=== PATIENT | male | born 1985 | race African-American/Black ===

== ENCOUNTER 2017-12-25 14:53 | Emergency (ER) | payer SELFPAY ==
--- NOTE | 2017-12-25 15:00 | PDOC ---
Rapid Medical Evaluation Time Seen by Provider: 12/25/17 15:00 Medical Evaluation: Allergies Allergy/AdvReac Type Severity Reaction Status Date / Time No Known Allergies Allergy Verified 06/21/15 17:09 12/25/17 15:00 The patient presents with a chief complaint of: sore throat, cough I have performed a brief in-person evaluation of this patient. Pertinent physical exam findings: vss, normal speech I have ordered the following: rapid strep The patient will proceed to the ED for further evaluation. 12/25/17 15:08
[2017-12-25 15:10] VITALS: BP 156/109; PULSE 86; TEMP 98.3; BMI 32.8
[2017-12-25] MEDS ORDERED: DEXAMETHASONE LIQUID 0.5 MG/5 ML 240 ML BULK BOTTLE PO ONE (15:33)
[2017-12-25] MEDS ORDERED: KETOROLAC TROMETHAMINE 30 MG/1 ML VIAL IM ONE (15:33)
[2017-12-25] MEDS ORDERED: KETOROLAC TROMETHAMINE 30 MG/1 ML VIAL ONE (15:34)
[2017-12-25] MEDS ORDERED: DEXAMETHASONE SOD PHOSPHATE 10 MG/1 ML VIAL ONE (15:34)
--- NOTE | 2017-12-25 15:46 | PDOC ---
History of Present Illness - General Chief Complaint: Cold Symptoms Stated Complaint: THROAT PAIN Time Seen by Provider: 12/25/17 15:00 History Source: Patient Exam Limitations: No Limitations - History of Present Illness Initial Comments: 12/25/17 15:51 This is a 32-year-old male without significant past medical history who presents to the emergency department with 3 weeks of sore throat, moist cough, nasal congestion and intermittent fevers. He states he experienced episodes like this before for which she was should with antibiotics and had a sleep study performed. Patient states that the starting antibiotic/time the symptoms resolved in 10 days. He denies chest pain, shortness of breath, abdominal pain, nausea, vomiting, blurry vision, difficulty swallowing. Past History - Past Medical History Allergies/Adverse Reactions: Allergies Allergy/AdvReac Type Severity Reaction Status Date / Time No Known Allergies Allergy Verified 06/21/15 17:09 Home Medications: Ambulatory Orders NK [No Known Home Medication] 12/25/17 HTN: Yes (NO MEDS) - Suicide/Smoking/Psychosocial Hx Smoking History: Never smoked Number of Cigarettes Smoked Daily: 1 Cigars Per Day: 1 'Breaking Loose' booklet given: 06/21/15 Hx Alcohol Use: Yes (SOCIAL) Drug/Substance Use Hx: No Substance Use Type: None Review of Systems - Review of Systems Able to Perform ROS?: Yes Is the patient limited Croatian proficient: No Constitutional: Yes: See HPI HEENTM: Yes: See HPI Respiratory: Yes: See HPI Cardiac (ROS): No: Symptoms Reported ABD/GI: No: Symptoms Reported : No: Symptoms Reported Musculoskeletal: No: Symptoms Reported Integumentary: No: Symptoms Reported Neurological: No: Symptoms reported Endocrine: No: Symptoms Reported *Physical Exam - Vital Signs Last Vital Signs Temp Pulse Resp BP Pulse Ox 98.3 F 86 18 156/109 99 12/25/17 15:08 12/25/17 15:08 12/25/17 15:08 12/25/17 15:08 12/25/17 15:08 - Physical Exam General Appearance: Yes: Appropriately Dressed. No: Apparent Distress HEENT: positive: TMs Normal, Pharyngeal Erythema, Tonsillar Erythema, Nasal Congestion, Hearing Grossly Normal. negative: Tonsillar Exudate, Rhinorrhea, Sinus Tenderness Neck: positive: Trachea midline, Supple Respiratory/Chest: positive: Lungs Clear, Normal Breath Sounds. negative: Respiratory Distress, Accessory Muscle Use Cardiovascular: positive: Regular Rhythm, Regular Rate, S1, S2. negative: Edema , Murmur Gastrointestinal/Abdominal: positive: Normal Bowel Sounds, Soft. negative: Tender Musculoskeletal: positive: Normal Inspection. negative: CVA Tenderness Extremity: positive: Normal Capillary Refill, Normal Inspection Integumentary: positive: Normal Color, Dry, Warm Neurologic: positive: Alert, Normal Response, Motor Strength 5/5 Medical Decision Making - Medical Decision Making 12/25/17 15:52 A/P: 32-year-old male without significant past medical history with 3 weeks of upper respiratory symptoms TMs within normal limits bilaterally No tenderness over sinuses Differential erythema and tonsillar erythema present. No tonsillar exudate noted. +3 tonsils present Note tender cervical lymphadenopathy present Lungs clear to auscultation bilaterally Regular rhythm tachycardic with rate of 110. No murmurs noted Abdomen soft nontender nondistended Symptoms consistent with upper respiratory illness. Influenza testing deferred as symptoms have been present for 3 weeks. Rapid strep testing Toradol 30 mg IM now Decadron 10 mg by mouth now Reassess 12/25/17 16:00 Rapid strep test and negative. I will discharge patient home with symptomatic treatment for upper respiratory infection *DC/Admit/Observation/Transfer Diagnosis at time of Disposition: Upper respiratory infection Qualifiers: URI type: unspecified viral URI Qualified Code(s): J06.9 - Acute upper respiratory infection, unspecified - Discharge Dispostion Disposition: HOME Condition at time of disposition: Stable Admit: No - Referrals - Patient Instructions Printed Discharge Instructions: DI for Viral Upper Respiratory Infection -- Adult Additional Instructions: Rest, drink lots of fluids: Teas, water, soups, Pedialyte Saltwater gargles Steamy showers/seem to face break up mucus Avoid contact with others until fevers and cough resolved Lots of handwashing and good hygiene Continue [id number] medications for symptomatic relief Tylenol or Motrin for fever and pain Followup with private physician in one to 2 days as needed Return to emergency department for worsened symptoms, fevers, dehydration - Post Discharge Activity
== END 2017-12-25 16:11 | disposition home or self-care (01) ==
LOC: JERFT 14:53
PROC: 3E0333Z Introduction of Anti-inflammatory into Peripheral Vein, Percutaneous Approach (ICD-10-PCS; principal; 2017-12-25)
DX: J06.9 Acute upper respiratory infection, unspecified (principal); I10 Essential (primary) hypertension
CPT/HCPCS: 87070; 87430; 99281-25

== ENCOUNTER 2021-04-08 00:50 | Emergency (ER) | payer SELFPAY ==
[2021-04-08 02:00] VITALS: BP 145/94; PULSE 78; TEMP 98.4; BMI 31.4
[2021-04-08] MEDS ORDERED: ACETAMINOPHEN 325 MG TABLET (FP) PO ONE (03:42)
[2021-04-08 04:03] LABS: BASO % 0.3 % (0-2.0); EOS % 0.3 % (0-4.5); HEMATOCRIT 42.1 % (35.4-49); HEMOGLOBIN 13.9 GM/dL (11.7-16.9); LYMPH % 11.6 % (8-40); MCH 29.6 pg (25.7-33.7); MCHC 32.9 g/dl (32.0-35.9); MEAN CELL VOLUME 90.1 fl (80-96); MEAN PLT VOLUME 8.3 fl (7.5-11.1); MONO % 8.8 % (3.8-10.2); PLATELET COUNT 291 10^3/uL (134-434); RBC 4.68 M/mm3 (4.00-5.60); WHITE BLOOD COUNT 12.8 K/mm3 (4.0-10.0)
[2021-04-08] MEDS ORDERED: ACETAMINOPHEN 325 MG TABLET (FP) ONE (04:05)
[2021-04-08 04:15] LABS: INR 1.13 (0.83-1.09); PROTHROMBIN TIME (PATIENT) 13.6 SEC (9.7-13.0)
[2021-04-08 04:18] LABS: ACTIVATED PTT 23.2 SECONDS (25.2-36.5)
[2021-04-08 04:23] LABS: CHLORIDE 104 mmol/L (98-107); SODIUM 137 mmol/L (136-145)
[2021-04-08 04:25] LABS: CALCIUM 8.7 mg/dL (8.5-10.1)
[2021-04-08 04:26] LABS: ALBUMIN 3.9 g/dl (3.4-5.0); ANION GAP 6 MMOL/L (8-16); BLOOD UREA NITROGEN 13.1 mg/dL (7-18); CO2 28 mmol/L (21-32); GLUCOSE,RANDOM 94 mg/dL (74-106)
[2021-04-08 04:29] LABS: SGOT/AST 43 U/L (15-37); SGPT/ALT 45 U/L (13-61)
[2021-04-08 04:30] LABS: BILIRUBIN,TOTAL 0.5 mg/dL (0.2-1); TOT PROT 8.3 g/dl (6.4-8.2)
[2021-04-08 04:32] LABS: ALK PHOS 94 U/L (45-117)
[2021-04-08 04:34] LABS: N-TERMINAL BNP 26.9 pg/ml (5-125)
== END 2021-04-08 07:14 | disposition home or self-care (01) ==
LOC: JER 00:50
DX: M79.10 Myalgia, unspecified site (principal)
CPT/HCPCS: 36415; 71275-TC; 80053; 82550; 82553; 83880; 84484; 85025; 85610; 85730; 93005; 93010; 99285-25; Q9967

== ENCOUNTER 2023-03-10 21:43 | Emergency (ER) | payer OTHER ==
[2023-03-10 21:57] VITALS: PULSE 72; RESP 18; TEMP 98; BMI 31.5
[2023-03-10 22:33] LABS: BASO % 0.4 % (0-2.0); EOS % 1.4 % (0-4.5); HEMATOCRIT 44.7 % (35.4-49); HEMOGLOBIN 14.4 GM/dL (11.7-16.9); LYMPH % 28.1 % (8-40); MCH 29.5 pg (25.7-33.7); MCHC 32.3 g/dl (32.0-35.9); MEAN CELL VOLUME 91.4 fl (80-96); MEAN PLT VOLUME 9.6 fl (7.5-11.1); NEUT % 62.1 % (42.8-82.8); PLATELET COUNT 240 10^3/uL (134-434); RBC 4.89 M/mm3 (4.00-5.60); RDW 13.4 % (11.9-15.9); WHITE BLOOD COUNT 10.7 K/mm3 (4.0-10.0)
[2023-03-10 22:38] LABS: INR 1.01 (0.83-1.09); PROTHROMBIN TIME (PATIENT) 11.7 SEC (9.7-13.0)
[2023-03-10 22:41] LABS: ACTIVATED PTT 32.4 SECONDS (25.2-36.5)
[2023-03-10 22:54] LABS: ALBUMIN 3.9 g/dl (3.4-5.0); CALCIUM 9.3 mg/dL (8.5-10.1)
[2023-03-10 22:55] LABS: BLOOD UREA NITROGEN 14.9 mg/dL (7-18)
[2023-03-10 22:58] LABS: CREATININE 1.1 mg/dL (0.55-1.3)
[2023-03-10 22:59] LABS: BILIRUBIN,TOTAL 0.2 mg/dL (0.2-1)
[2023-03-10] MEDS ORDERED: LIDOCAINE 5% TOPICAL PATCH TP ONE (23:09)
[2023-03-10] MEDS ORDERED: KETOROLAC TROMETHAMINE 15 MG/ML VIAL IVPUSH ONE (23:09)
[2023-03-11] MEDS ORDERED: LIDOCAINE 5% TOPICAL PATCH ONE (00:15)
[2023-03-11] MEDS ORDERED: KETOROLAC TROMETHAMINE 15 MG/ML VIAL ONE (00:15)
[2023-03-11 03:03] VITALS: BP 146/60
== END 2023-03-11 03:05 | disposition home or self-care (01) ==
LOC: JER 21:43
PROC: 3E033NZ Introduction of Analgesics, Hypnotics, Sedatives into Peripheral Vein, Percutaneous Approach (ICD-10-PCS; principal; 2023-03-10)
DX: R07.1 Chest pain on breathing (principal); Z20.822 Contact with and (suspected) exposure to COVID-19
CPT/HCPCS: 0241U-QW; 36415; 71046-TC-FY; 80053; 84484; 85025; 85379; 85610; 85730; 93005; 93010; 99285-25

== ENCOUNTER 2024-06-03 06:08 | Emergency (ER) | payer SELFPAY ==
[2024-06-03 06:11] VITALS: BP 140/82; PULSE 76; RESP 17; TEMP 98.2; BMI 30.4
[2024-06-03] MEDS ORDERED: ACETAMINOPHEN 325 MG TABLET (FP) ONE (07:21)
[2024-06-03] MEDS: ACETAMINOPHEN 500 MG TABLET (FP) PO ONE (07:24)
[2024-06-03] MEDS ORDERED: KETOROLAC TROMETHAMINE 15 MG/ML VIAL ONE (09:29)
[2024-06-03] MEDS: KETOROLAC TROMETHAMINE 15 MG/ML VIAL IM ONE (09:33)
[2024-06-03 16:27] LABS: HIV INTERPRETATION NEGATIVE (NEGATIVE)
== END 2024-06-03 10:21 | disposition home or self-care (01) ==
LOC: JER 06:08
PROC: 3E0133Z Introduction of Anti-inflammatory into Subcutaneous Tissue, Percutaneous Approach (ICD-10-PCS; principal; 2024-06-03)
DX: M25.561 Pain in right knee (principal); R60.0 Localized edema
CPT/HCPCS: 36415; 73562-TC-RT-FY; 86803; 87389; 93971-TC; 99285-25

== ENCOUNTER 2025-07-03 15:54 | Emergency (ER) | payer OTHER ==
[2025-07-03 16:16] VITALS: RESP 20; BMI 31.4
[2025-07-03] MEDS: KETOROLAC TROMETHAMINE 30 MG/1 ML VIAL IM ONE (17:00)
[2025-07-03] MEDS ORDERED: KETOROLAC TROMETHAMINE 15 MG/ML VIAL ONE (17:05)
[2025-07-03] MEDS ORDERED: LIDOCAINE 5% TOPICAL PATCH ONE (17:05)
[2025-07-03] MEDS ORDERED: METHOCARBAMOL 500 MG TABLET ONE (17:05)
[2025-07-03] MEDS: LIDOCAINE 5% TOPICAL PATCH TP ONE (17:10)
[2025-07-03] MEDS: KETOROLAC TROMETHAMINE 15 MG/ML VIAL IVPUSH ONE (17:15)
[2025-07-03 17:43] LABS: ABSOLUTE IMMATURE GRANULOCYTES 0.03 x10^3/uL (0.0-0.031); BASOPHILS # 0.02 x10^3/uL (0.01-0.08); EOSINOPHIL % 0.4 % (0.8-7.0); EOSINOPHILS # 0.04 x10^3/uL (0.04-0.54); MCHC 31.2 g/dl (32.3-36.5); MEAN CELL VOLUME 93.2 fl (79.0-92.2); MEAN PLT VOLUME 10.5 fl (9.4-12.4); MONOCYTE # 0.77 x10^3/uL (0.30-0.82); MONOCYTE % 7.4 % (5.3-12.2); RDW 11.9 % (12.1-15.9)
[2025-07-03] MEDS: METHOCARBAMOL 500 MG TABLET PO ONE (17:50)
[2025-07-03 18:02] LABS: GLUCOSE,RANDOM 80.0 mg/dL (74-106); TOT PROT 7.8 g/dl (6.4-8.2)
[2025-07-03 18:03] LABS: CO2 26.0 mmol/L (21-32)
[2025-07-03 18:05] LABS: ALK PHOS 90.0 U/L (40-150)
[2025-07-03 18:08] LABS: CREATININE 0.9 mg/dL (0.55-1.3); SGOT/AST 39.0 U/L (5-34); SGPT/ALT 62.0 U/L (0-55)
[2025-07-03 18:28] LABS: HCV DIAGNOSTIC IN-HOUSE W/RFLX NON-REACTIVE (NONREACTIVE)
[2025-07-03 18:29] LABS: HIV INTERPRETATION NEGATIVE (NEGATIVE)
[2025-07-03] MEDS ORDERED: ACETAMINOPHEN INJECTION 100 ML ONE (18:44)
[2025-07-03] MEDS: ACETAMINOPHEN 1000 MG/100 ML BAG IVPB ONE (18:48)
[2025-07-03 20:54] VITALS: BP 144/113; PULSE 70; TEMP 97.7
[2025-07-03] MEDS ORDERED: LIDOCAINE PATCH REMOVAL MC SCH (22:00)
== END 2025-07-03 20:53 | disposition home or self-care (01) ==
LOC: JER 15:54
PROC: 3E033NZ Introduction of Analgesics, Hypnotics, Sedatives into Peripheral Vein, Percutaneous Approach (ICD-10-PCS; principal; 2025-07-03)
PROC: 3E0333Z Introduction of Anti-inflammatory into Peripheral Vein, Percutaneous Approach (ICD-10-PCS; 2025-07-03)
DX: M54.50 Low back pain, unspecified (principal); R05.9 Cough, unspecified
CPT/HCPCS: 36415; 80053; 82962; 83735; 84100; 85025; 86803; 87389; 93005; 93010; 99284-25